=== PATIENT | male | born 1945 | race Caucasian/White ===

== ENCOUNTER 2017-03-28 12:48 | Emergency (ER) | payer MEDICARE, OTHER ==
[2017-03-28 13:15] VITALS: BP 159/79; PULSE 86; RESP 16; TEMP 98; O2SAT 97
--- NOTE | 2017-03-28 13:20 | ED PDOC ---
Arrival/HPI - General Chief Complaint: Cough, Cold, Congestion Time Seen by Provider: 03/28/17 13:16 Historian: Patient - History of Present Illness Narrative History of Present Illness (Text): 03/28/17 13:20 A 72 year old male, whose past medical history includes hypertension and hyperlipidemia, presents to the emergency department complaining of productive cough with white phlegm and congestion for 3 days. Patient denies any relieving or exacerbating factors. Patient denies any fever, chills, nausea, vomiting, abdominal pain, chest pain, leg swelling, dyspnea on exertion, shortness of breath or any other complaints. 03/28/17 14:11 Time/Duration: Other (3 days) Symptom Course: Unchanged Quality: Other Context: Home Past Medical History - Provider Review Nursing Documentation Reviewed: Yes - Infectious Disease Hx of Infectious Diseases: None - Cardiac Hx Hypertension: Yes - Psychiatric Hx Substance Use: No - Anesthesia Hx Anesthesia: No Family/Social History - Physician Review Nursing Documentation Reviewed: Yes Family/Social History: No Known Family HX Smoking Status: Current Some Days Smoker Hx Alcohol Use: Yes Frequency of alcohol use: Socially Hx Substance Use: No Allergies/Home Meds Allergies/Adverse Reactions: Allergies No Known Allergies Allergy (Verified 03/28/17 13:15) Review of Systems - Physician Review All systems were reviewed & negative as marked: Yes - Review of Systems Constitutional: absent: Fevers, Night Sweats ENT: Sinus Congestion Respiratory: Cough, Sputum. absent: SOB Cardiovascular: absent: Chest Pain, Palpitations, Edema, Calf Pain, Orthopnea, Syncope Gastrointestinal: absent: Abdominal Pain, Nausea, Vomiting Physical Exam Vital Signs Reviewed: Yes Vital Signs Temp Pulse Resp BP Pulse Ox 03/28/17 13:11 98 F 86 16 159/79 H 97 03/28/17 12:49 98 F 86 16 159/79 H 97 Temperature: Afebrile Blood Pressure: Hypertensive Pulse: Regular Respiratory Rate: Normal Appearance: Positive for: Well-Appearing, Non-Toxic, Comfortable Pain Distress: None Mental Status: Positive for: Alert and Oriented X 3 - Systems Exam Head: Present: Atraumatic, Normocephalic Pupils: Present: PERRL Extroacular Muscles: Present: EOMI Conjunctiva: Present: Normal Mouth: Present: Moist Mucous Membranes Neck: Present: Normal Range of Motion Respiratory/Chest: Present: Clear to Auscultation, Good Air Exchange. No: Respiratory Distress, Accessory Muscle Use Cardiovascular: Present: Regular Rate and Rhythm, Normal S1, S2. No: Murmurs Abdomen: Present: Normal Bowel Sounds. No: Tenderness, Distention, Peritoneal Signs Back: Present: Normal Inspection Upper Extremity: Present: Normal Inspection. No: Cyanosis, Edema Lower Extremity: Present: Normal Inspection. No: Edema Neurological: Present: GCS=15, CN II-XII Intact, Speech Normal Skin: Present: Warm, Dry, Normal Color. No: Rashes Psychiatric: Present: Alert, Oriented x 3, Normal Insight, Normal Concentration Medical Decision Making ED Course and Treatment: 03/28/17 13:20 Impression: A 72 year old male with cough and congestion. Plan is to evaluate for PNA and flu. Plan: -- Chest xray -- Influenza A B Stat -- Tessalon Perles -- Reassess and disposition Progress Notes: 03/28/17 14:05 CHEST XRAY Mild peribronchial thickening. The lungs are clear PLEURA: No significant pleural effusion identified. No pneumothorax apparent. CARDIOVASCULAR: Normal. OSSEOUS STRUCTURES: No significant abnormalities. VISUALIZED UPPER ABDOMEN: Normal. OTHER FINDINGS: None. IMPRESSION: No active disease. 03/28/17 14:09 Patient is well appearing and afebrile. Cxray negative for pneumonia. Influenza negative. - Lab Interpretations Lab Results: Lab Results 03/28/17 13:25: Influenza Typ A,B (EIA) Negative for flu a/b - RAD Interpretation Radiology Orders: 03/28/17 13:20 CHEST TWO VIEWS (PA/LAT) [RAD] Stat - Medication Orders Current Medication Orders: Discontinued Medications Benzonatate (Tessalon Perles) 100 mg PO STAT STA Stop: 03/28/17 13:21 Last Admin: 03/28/17 13:30 Dose: 100 mg - Scribe Statement The provider has reviewed the documentation as recorded by the Maurice Ritter Provider Scribe Attestation: All medical record entries made by the Scribe were at my direction and personally dictated by me. I have reviewed the chart and agree that the record accurately reflects my personal performance of the history, physical exam, medical decision making, and the department course for this patient. I have also personally directed, reviewed, and agree with the discharge instructions and disposition. Disposition/Present on Arrival - Present on Arrival Any Indicators Present on Arrival: No History of DVT/PE: No History of Uncontrolled Diabetes: No Urinary Catheter: No History of Decub. Ulcer: No History Surgical Site Infection Following: None - Disposition Have Diagnosis and Disposition been Completed?: Yes Diagnosis: Upper respiratory infection Disposition: HOME/ ROUTINE Disposition Time: 14:10 Patient Plan: Discharge Condition: GOOD Additional Instructions: Follow-up with PMD within 2 days. Return to ED if condition worsens. Take cough medication as needed. Prescriptions: Benzonatate [Tessalon Perles] 100 mg PO TID PRN #20 sgl PRN Reason: Cough Forms: [employer] ([place]ian)
--- NOTE | 2017-03-28 14:03 | RAD ---
HISTORY: cough, congestion COMPARISON: No prior. TECHNIQUE: Chest PA and lateral FINDINGS: LUNGS: Mild peribronchial thickening. The lungs are clear PLEURA: No significant pleural effusion identified. No pneumothorax apparent. CARDIOVASCULAR: Normal. OSSEOUS STRUCTURES: No significant abnormalities. VISUALIZED UPPER ABDOMEN: Normal. OTHER FINDINGS: None. IMPRESSION: No active disease.
== END 2017-03-28 14:29 | disposition home or self-care (01) ==
LOC: ED 12:48
DX: J06.9 Acute upper respiratory infection, unspecified (principal); I10 Essential (primary) hypertension; E78.5 Hyperlipidemia, unspecified